=== PATIENT | female | born 1970 | race Caucasian/White ===

== ENCOUNTER 2022-05-19 22:24 | Emergency (ER) | payer BC ==
[2022-05-19 22:42] VITALS: BP 115/75; PULSE 82; TEMP 98.3; BMI 27.8
[2022-05-20] MEDS ORDERED: DEXAMETHASONE SOD PHOSPHATE 10 MG/1 ML VIAL IM ONE (00:15)
[2022-05-20] MEDS ORDERED: DEXAMETHASONE SOD PHOSPHATE 10 MG/1 ML VIAL ONE (00:20)
== END 2022-05-20 00:26 | disposition home or self-care (01) ==
LOC: JER 22:24
PROC: 3E023GC Introduction of Other Therapeutic Substance into Muscle, Percutaneous Approach (ICD-10-PCS; principal; 2022-05-19)
DX: L23.7 Allergic contact dermatitis due to plants, except food (principal)
CPT/HCPCS: 99284-25; J1100